=== PATIENT | male | born 1965 | race Caucasian/White ===

== ENCOUNTER 2017-11-04 20:10 | Inpatient (IN) | payer MEDICAID ==
[~2017-11-04] VITALS: Ht 182.9 cm; Wt 92.1 kg
--- NOTE | ~2017-11-04 | OP ---
PATIENT NAME: MARTIN BENAVIDES MEDICAL RECORD: [id number] :63 LOCATION:D. D.2116 ADMISSION DATE:11/05/17 SURGEON: MULUGETA KURTZ MD DATE OF OPERATION: 11/20/2017 DATE OF PROCEDURE: 11/20/2017 SURGEON: Mulugeta Kurtz MD ASSISTANT MEN'S SOCCER COACH: None. PROCEDURE PERFORMED: Left ultrasound-guided thoracentesis. DIAGNOSIS: Left pleural effusion following coronary bypass graft. ANESTHESIA: Local 10 cc of 1% Xylocaine. COMPLICATIONS: None. SPECIMENS: None. FINDINGS: 400 cc of fluid completely drained by ultrasound. DESCRIPTION OF PROCEDURE: With the patient seated upright and pulse oximetry connected, the patient's left posterior chest was imaged and a pleural effusion was identified. A site for entry was identified. The chest was prepped and draped. A 1% Xylocaine was used for local anesthetic. The effusion was localized utilizing a small needle. A 2 mm skin incision was made. The thoracentesis catheter was inserted carefully. Fluid was returned and a total of 400 cc of serosanguineous fluid were removed without complication. The catheter was removed. Pressure was held. Ultrasound confirmed complete drainage. The patient was stable and sent for chest x-ray. TRANSINT:[id number] Voice Confirmation ID: [id number] DOCUMENT ID: [id number] MULUGETA KURTZ MD at 1327 CC: JESSICA HERNANDEZ MD [id number] DICTATION DATE: 11/20/17 1147 PROGRAMS DIRECTOR: 11/20/17 1203 ADM IN [place] [address] [place] [address]
--- NOTE | ~2017-11-04 | CN ---
PATIENT NAME:MARTIN BENAVIDES MEDICAL RECORD: [id number] : 63 LOCATION:[facility] D.2116 ADMIT DATE: 11/05/17 ACCOUNT: [id number] CONSULTING PHYSICIAN: IRIS LACY MD REFERRING PHYSICIAN: VASILIY RICE DO DATE OF CONSULTATION: 11/05/2017 CONSULT REQUESTING PHYSICIAN: Dr. Vasiliy Rice REASON FOR CONSULTATION: Acute exacerbation of chronic obstructive pulmonary disease, CT. HISTORY OF PRESENT ILLNESS: Mr. Benavides is a 52-year-old gentleman who came into the hospital with the chest pain. Workup showed he has non-Q-wave CT. The patient was admitted to the hospital and also he is sick for the last couple of weeks. He is coughing, he is wheezing and shortness of breath. The cough is productive with yellow color sputum production. There are no fever and chills, no night sweats. REVIEW OF SYSTEMS: As in the history of present illness. PAST MEDICAL HISTORY: 1. Hypertension. 2. Tobacco dependence syndrome. PAST SURGICAL HISTORY: He has herniorrhaphy. ALLERGIES: There are no known drug allergies. MEDICATIONS: He is on lisinopril, carvedilol, and hydrochlorothiazide. PERSONAL AND SOCIAL HISTORY: The patient still current every day smoker for years. He is a nondrinker. FAMILY HISTORY: Noncontributory. PHYSICAL EXAMINATION: GENERAL: The patient is now lying comfortably in bed. He is not in acute distress. VITAL SIGNS: The blood pressure 171/121, pulse is 72, respiration is 17, temperature 97.5, and SPO2 is 97% on room air. HEENT: Conjunctivae pink, sclerae nonicteric. NECK: Supple, no JVD. CHEST: Excursion is minimal on both sides. There is wheeze on forceful expiration. HEART: Rhythm regular, normal sound, no murmur. ABDOMEN: Soft, bowel sounds present. No hepatosplenomegaly. RECTAL: Deferred. EXTREMITIES: No cyanosis, no clubbing, no pedal edema. SKIN: Warm, normal turgor. CENTRAL NERVOUS SYSTEM: The patient is awake and alert. There are no obvious cranial nerve abnormalities. The gait was not tested. CHEST RADIOGRAPH: There is hyperinflation. There is no acute infiltrate. CONSULT REPORT [id number] MARTIN BENAVIDES LABORATORY DATA: CBC: The WBC is 8.2, hemoglobin 14.4, hematocrit 44.1, and the platelet count 251. Chemistry: Sodium 141, potassium 3.8, BUN is 23, creatinine is 1.1. CK is 377. Troponin is 5.187, it maxed to 15.5. Albumin is 3. IMPRESSION: 1. Acute exacerbation of chronic obstructive pulmonary disease and acute bronchitis. 2. Non-Q-wave myocardial infarction. 3. Tobacco dependence syndrome. 4. Hypertension. RECOMMENDATIONS: 1. Start on albuterol-ipratropium nebulizer. 2. Brovana, budesonide nebulizer. 3. Methylprednisolone IV, doxycycline IV, Mucinex DM 2 tablets b.i.d. 4. The patient was counseled regarding smoking cessation. 5. The patient will need the PFT and ABG prior the CABG when his acute symptoms improve. Dr. Rice thank you for involving me in the care of Mr. Benavides. TRANSINT:[id number] Voice Confirmation ID: [id number] DOCUMENT ID: [id number] IRIS LACY MD at 1340 CC: VASILIY RICE DO [id number] DICTATION DATE: 11/05/171806 VOCATIONAL ADVISER: 11/05/171912 DIS IN 11/23/17 [facility] [address] [facility] [place] [address]
--- NOTE | ~2017-11-04 | HEMODYNAMI ---
PATIENT:MARTIN BENAVIDES MEDICAL RECORD: [id number] : 63 [address] CL[address]ICT# [id number] ADMISSION DATE: 11/04/17 Generatedon:11/05/20179:20 Patient name: MARTIN BENAVIDES Patient #: [id number] SSN: : 1965 Date of study: 11/05/2017 Page: Of Hemodynamic Procedure Report Patient Data Patient Demographics Procedure consent was obtained First Name: MARTIN Gender: Male Last Name: MAKAYLA : 1965 Middle Initial: E Age: 52 year(s) Patient #: [id number] Race: Unknown Additional ID: [id number] Contact details [address]: [address] [place] [address] State: [place] City: [place] Zip code: [address] Past Medical History Allergies: No known allergies Admission Admission Data Admission Date: 11/04/2017 Admission Time: 21:45 Room #: [facility] Lab Results Lab Result Date: 11/05/2017 Lab Result Time: 0:00 Biochemistry Name Units Result Min Max BUN mg/dl 23 --(----)-* 7 18 Creatinine mg/dl 1.1 --(--*-)-- 0.6 1.3 CBC Name Units Result Min Max Hemoglobin g/dl 14.4 --(*---)-- 13.5 17.5 Procedure Procedure Types Cath Procedure Diagnostic Procedure LHC LHC w/Coronaries Procedure Description Procedure Date Procedure Date: 11/05/2017 Procedure Start Time: 9:06 Procedure End Time: 9:19 Procedure Staff Name Function Adama Hedrick MD Performing Physician Tabitha De Anda RT Monitor Irasema Valencia RN Nurse Alisha Dow RT Scrub Procedure Data Cath Procedure Fluoroscopy Diagnostic fluoroscopy Total fluoroscopy Time: 1.8 time: 1.8 min min Diagnostic fluoroscopy Total fluoroscopy dose: 509 dose: 509 mGy mGy Contrast Material Contrast Material Type Amount (ml) Isovue 300 45 Entry Location Entry Primary Successful Side Size Upsize Upsize Entry Closure Cordova ccessful Closure Location (Fr) 1 (Fr) 2 (Fr) Remarks Device Remarks Radial Right 6 Fr Mechanical artery Short Compression Estimated blood loss: 5 ml Diagnostic catheters Device Type Used For End Catheter Placement DIAGNOSTIC Ravenden 110cm 5 Procedure Fr catheter ([id number]) Procedure Complications No complications Procedure Medications Medication Administration Route Dosage Oxygen NC 2 l/min Lidocaine 2% added to field 20 Heparin Flush Bag added to field 2 bags (1000units/500ml NS) 0.9% NaCl I.V. 100 ml/hr Fentanyl I.V. 50 mcg Versed I.V. 1 mg Radial Cocktail I.A. 1 syringe (Verapomil 2mg/Nitro 400mcg/Heparin 1500units) Lopressor I.V. 5 mg Hemodynamics Rest HGB: 14.4 (g/dl) Heart Rate: 70 (bpm) Pressure Samples Time Site Value (mmHg) Purpose Heart Use Rate(bpm) 9:08 LV 160/-22,77 EDP 132 9:09 LV 163/6,18 EDP 87 Gradients Valve Time Site Site Mean SEP/DFP Peak To Heart Use 1 2 (mmHg) (sec/min) Peak Rate (mmHg) (bpm) Aortic 9:09 LV AO 89 Snapshots Pre Cath Intra NCS Post Cath Vital Signs Time Heart Resp SPO2 etCO2 NIBP (mmHg) Rhythm Pain Sedation Rate (ipm) (%) (mmHg) Status Level (bpm) 8:52:12 62 20 99 0 183/105(142) NSR 0 (11) 10(A) , No pain 8:57:01 69 23 100 40.6 195/116(173) NSR 0 (11) 10(A) , No pain 9:01:51 69 20 100 39.9 183/123(151) NSR 0 (11) 10(A) , No pain 9:06:36 73 18 100 42.9 173/113(142) NSR 0 (11) 9(A) , No pain 9:11:12 80 18 96 39.1 143/93(117) NSR 0 (11) 9(A) , No pain 9:16:30 78 19 98 20.3 180/112(131) NSR 0 (11) 10(A) , No pain Medications Time Medication Route Dose Verified Delivered Reason Notes E ffectiveness by by 8:52:37 Oxygen NC 2 l/min Adama Buffie used for Ryley Valencia RN procedure MD 8:52:43 Lidocaine 2% added 20ml Adama Adama for local to vial Ryley Hedrick MD anesthetic field MD 8:52:49 Heparin Flush added 2 bags Adama Adama used for Bag to Ryley Hedrick MD procedure (1000units/500ml field SHORE NS) 8:52:59 0.9% NaCl I.V. 100 Adama Buffie Per ml/hr Ryley Valencia RN physician 9:03:02 Fentanyl I.V. 50 mcg Adama Buffie for sedation Ryley Valencia RN, MD 9:03:28 Versed I.V. 1 mg Adama Buffie for sedation Ryley Valencia RN, MD 9:07:47 Radial Cocktail I.A. 1 Adama Adama for (Verapomil syringe Ryley Hedrick MD vasodilation 2mg/Nitro MD 400mcg/Heparin 1500units) 9:18:11 Lopressor I.V. 5 mg Adama Buffie Per Ryley garza MD Procedure Log Time Note 8:39:34 Informed consent obtained and on chart 8:40:02 Irasema Valencia RN sent for patient. Start room use. 8:40:03 Time tracking: Regular hours 8:40:07 Plan of Care:Hemodynamics will remain stable., Cardiac rhythm will remain stable., Comfort level will be maintained., Respiratory function will remain adequate., Patient/ family verbilizes understanding of procedure., Procedure tolerated without complication., Recovers from procedure without complications.. 8:45:47 Patient received from Med II to CCL 1 Alert and oriented. Tansferred to table in Supine position. 8:45:49 Warm blankets applied, and brandyn hugger turned on for patient comfort. 8:45:49 Correct patient and procedure confirmed by team. 8:45:50 ECG and BP/O2 sat monitors applied to patient. 8:51:27 Vital chart was started 8:52:37 Oxygen 2 l/min NC was administered by Irasema Valencia RN; used for procedure; 8:52:43 Lidocaine 2% 20ml vial added to field was administered by Adama Hedrick MD; for local anesthetic; 8:52:49 Heparin Flush Bag (1000units/500ml NS) 2 bags added to field was administered by Adama Hedrick MD; used for procedure; 8:52:59 0.9% NaCl 100 ml/hr I.V. was administered by Irasema Valencia RN; Per physician; 8:58:42 Baseline sample Acquired. 8:58:46 Rhythm: sinus rhythm 8:58:47 Full Disclosure recording started 8:59:22 H&P Date Dictated: 11/05/2017 New H&P dictated by physician.. 8:59:23 Pre-procedure instructions explained to patient. 8:59:23 Pre-op teaching completed and patient verbalized understanding. 8:59:41 Family in patients room. 8:59:43 Patient NPO since Midnight. 8:59:49 Patient allergic to No known allergies 8:59:51 Is the patient allergic to Iodine/contrast media? No. 8:59:55 Is patient on blood thinner?Yes 8:59:57 ACC The patient was administered the following blood thiners within the last 24 hours: ACCPlavix 8:59:59 Patient diabetic? No. 9:00:02 Previous problem with sedation/anesthesia? No ? 9:00:02 Snore? Yes 9:00:03 Sleep apnea? No 9:00:04 Deviated septum? No 9:00:05 Opens mouth fully? Yes 9:00:06 Sticks out tongue? Yes 9:00:07 Airway obstruction? No ? 9:00:13 Dentures? Yes IN TIGHT 9:00:17 Pre procedure: right dorsailis pedis pulse 2+ Normal; easily identifiable; not easily obliterated 9:00:19 Modified Leno's test Ulnar < 7 seconds 9:00:26 Patient pain scale 0/10 ?. 9:00:33 IV patent on arrival in left antecubital with 0.9% NaCl at O. 9:00:59 Lab Result : Creatinine 1.1 mg/dl 9:00:59 Lab Result : BUN 23 mg/dl 9:00:59 Lab Result : Hemoglobin 14.4 g/dl 9:01:02 Lab results completed and on chart. 9:01:05 Right Radial & Right Groin area was prepped with chlora-prep and draped in sterile fashion 9:01:06 Alarms reviewed by Maria Elena Riley 9:01:12 Sharps counted by scrub and verified by Halina 9:01:13 --------ALL STOP TIME OUT------ 9:01:14 Final Timeout: patient, procedure, and site verified with staff and physician. All members of the team are in agreement. 9:01:16 Right Radial & Right Groin site verified by team. 9:01:20 Physical assessment completed. ASA score P 2 - A patient with mild systemic disease as per Adama Hedrick MD. 9:01:23 Sedation plan: IV Moderate Sedation Medication:Versed, Fentanyl 9:01:30 Use device set Radial Dx or PCI 9:01:31 ACIST Syringe (83823) opened to sterile field. 9:01:32 ACIST Hand Control (33403) opened to sterile field. 9:01:33 ACIST Manifold (45666) opened to sterile field. 9:01:33 Tegaderm 4 x 4 (1626W) opened to sterile field. 9:01:36 Bag Decanter (2002S) opened to sterile field. 9:01:37 Medline Cath Pack ([id number]) opened to sterile field. 9:01:38 SHEATH 6FR Slender ([id number]) opened to sterile field. 9:01:40 DIAGNOSTIC WIRE .035 260cm J wire (511894) opened to sterile field. 9:01:40 MBrace Wrist Support ([id number]) opened to sterile field. 9:03:02 Fentanyl 50 mcg I.V. was administered by Irasema Valencia RN; for sedation; 9:03:28 Versed 1 mg I.V. was administered by Irasema Valencia RN; for sedation; 9:06:07 Procedure started. 9:06:12 Local anesthetic to right radial artery with Lidocaine 2% by Adama Hedrick MD.INITIAL ACCESS ONLY 9:06:22 A 6 Fr Short sheath was inserted into the Right Radial artery 9:07:06 Zero performed for pressure channel P1 9:07:46 A DIAGNOSTIC Ravenden 110cm 5 Fr catheter (417009) was advanced over the wire and used for Procedure. 9:07:47 Radial Cocktail (Verapomil 2mg/Nitro 400mcg/Heparin 1500units) 1 syringe I.A. was administered by Adama Hedrick MD; for vasodilation; 9:07:59 LV gram done using WHITMAN 9:08:03 Injector settings: Ml/sec: 12, Volume: 8, 9:08:41 LV hemodynamics recorded. 9:09:35 EF : 70 % 9:10:51 LCA angiography performed. 9:11:11 RCA angiography performed. 9:12:35 Catheter removed. 9:13:19 WILL TALK WITH PATIENT FOR BYPASS 9:13:38 TR BAND Standard ([id number]) opened to sterile field. 9:14:13 Sheath removed intact; hemostasis achieved with Mechanical Compression to the Right Radial artery. 9:14:16 Procedure ended.(Physican Out) 9:14:20 Fluoroscopy time 01.80 minutes. 9:14:25 Fluoroscopy dose: 509 mGy 9:14:25 Flurop Dose total: 509 9:14:29 Contrast amount:Isovue 300 45ml. 9:14:31 Sharps counted by scrub and verified by R.N. 9:14:32 TR band inflated with 13cc of air. 9:14:33 Insertion/operative site no bleeding no hematoma. 9:14:36 Post procedure: right dorsailis pedis pulse 2+ Normal; easily identifiable; not easily obliterated. 9:14:39 Post-procedure physical assessment completed. ASA score P 2 - A patient with mild systemic disease as per Adama Hedrick MD. 9:14:42 Post procedure rhythm: unchanged. 9:14:45 Estimated blood loss: 5 ml 9:14:46 Post procedure instruction explained to patient.Patient verbalizes understanding. 9:14:48 Patient needs reinforcement of post procedure teaching. 9:18:11 Lopressor 5 mg I.V. was administered by Irasema Valencia RN; Per physician; 9:19:11 Procedure and supply charges have been captured, reviewed, submitted and are correct. 9:19:13 Procedure Complication : No complications 9:19:15 Vital chart was stopped 9:19:16 See physician's report for complete and final results. 9:19:18 Report given to PCU. 9:19:21 Patient transfered to PCU with Bed. 9:19:33 Procedure ended. 9:19:33 Full Disclosure recording stopped 9:19:40 End room use (Document Last) Device Usage Item Name Manufacture Quantity Catalog Hospital Part Current Minima l Lot# / Number Charge Number Stock Stock Serial# Code ACIST Acist 1 97597 659281 513396 [id number] 20 Syringe RewardsForce (81445) Foodini Inc ACIST Hand Acist 1 76636 284946 293578 304617 5 Control Medical (70132) Systems Inc ACIST Acist 1 48303 681847 711009 089160 5 Manifold Medical (06156) Systems Inc Tegaderm 4 x 3M 1 1626W 512825 499674 782378 5 4 (1626W) Bag Decanter Microtek 1 2002S 145290 99075 137266 5 (2001S) Medical Inc. Medline Cath Cardinal 1 [id number] 108278 12883 290010 5 [facility] ([id number]) SHEATH 6FR Terumo 1 [id number] 428708 051421 898688 40 Slender ([id number]) DIAGNOSTIC St Max 1 510597 150499 154482 500984 30 WIRE .035 260cm J wire (063247) MBrace Wrist Advanced 1 140-0250-00 980771 83579 611147 5 Support Vascular ([id number]) Dynamics DIAGNOSTIC Terumo 1 40-0833 113965 420510 120756 5 Ravenden 110cm 5 Fr catheter (395599) TR BAND Terumo 1 [id number] 314727 506752 749577 40 Standard ([id number]) Signature Audit [place] Stage Time Signature Unsigned Intra-Procedure 11/05/2017 Tabitha De Anda 9:20:31 AM RT(R) Signatures Monitor : Tabitha De Anda Signature : RT Date : Time : [place] [id number] [facility] [place] [address]
--- NOTE | ~2017-11-04 | TEE ---
PATIENT:MARTIN BENAVIDES MEDICAL RECORD: [id number] LOCATION:[place] [address] AGE OF PATIENT: 52 ADMISSION DATE: 11/05/17 SEX: M REFERRING PHYSICIAN: INTERPRETING PHYSICIAN: ЕКАТЕРИНА CRAWFORD MD TRANSESOPHAGEAL ECHOCARDIOGRAM RENETTA CHARGE Y INDICATIONS: CABG PREMEDICATIONS: PATIENT'S RESPONSE PROCEDURE DOPPLER MEASUREMENTS: LVIT LA PA RA LVOT RVOT Asc. Ao AV Gradient Peak AV Mean AV Area MV Gradient Peak MV Mean MV Area INTERPRETATION: LVd: 3.9 cm LVs: 3.0 cm Doppler: 2-D: COLOR FLOW DOPPLER NORMAL SALINE STUDY: MISCELLANOUS: DIAGNOSIS: PLAN: Nurse Informaticist:4 Dr. Crawford Local Tanker Truck Driver: 1 RANDOLPH JACKSON COMMENTS: DATE OF SERVICE: 11/13/2017 PROCEDURE: Transesophageal intraoperative echocardiography. FINDINGS: 1. The left ventricle is somewhat collapsed at initial transesophageal echocardiogram showing preserved LV systolic function. No obvious regional wall motion abnormalities. 2. The aortic valve appears to be structurally normal. TRANSESOPHAGEAL ECHOCARDIOGRAM REPORT [id number] MARTIN BENAVIDES 3. The mitral valve appears to be normal structurally with mild mitral regurgitation. 4. The pulmonic valve appears to be normal. Post-bypass imaging showed the ejection fraction near normal, although the left ventricle itself seems to be collapsed and the filling was suboptimal and the ejection fraction is 45% to 50%. TRANSINT:[id number] Voice Confirmation ID: [id number] DOCUMENT ID: [id number] at 1214 CC: [id number] DICTATION DATE: 11/13/17 1218 [place] OPERATOR: 11/13/17 1232 ADM IN [place] [address] [place] [address]
--- NOTE | ~2017-11-04 | OP ---
PATIENT NAME: MARTIN BENAVIDES MEDICAL RECORD: [id number] :63 LOCATION:D.CVI D.CV06 ADMISSION DATE:11/05/17 SURGEON: JACKY KURTZ MD DATE OF OPERATION: 11/13/2017 SURGEON: Jacky Kurtz MD STRESS ENGINEER: OPAL Kong OPERATIONS PERFORMED: 1. Coronary artery bypass graft times 3 (left internal mammary artery to LAD, radial artery from aorta to obtuse marginal, and reverse saphenous vein graft from aorta to posterior descending artery). 2. Open harvest, right radial artery. PREOPERATIVE DIAGNOSES: Coronary disease with myocardial infarction, severe COPD, bronchitis exacerbation. POSTOPERATIVE DIAGNOSES: Coronary disease with myocardial infarction, severe COPD, bronchitis exacerbation. ANESTHESIA: General endotracheal anesthesia. ESTIMATED BLOOD LOSS: Total cardiopulmonary bypass of 1200 cc. Cell Saver will be transfused. No bank blood transfusion. One platelet transfused. COMPLICATIONS: Localized aortic dissection along the left side of the ascending aorta, repaired primarily. SPECIMENS: None. CONDITION: Stable. DISPOSITION: CV ICU. OPERATIVE FINDINGS: 1. Transesophageal echocardiography confirmed severe left ventricular hypertrophy, normal LV function, and no valvular insufficiency or stenosis. 2. Good quality radial artery harvested. The calcium channel yanira was omitted due to bradycardia. 3. Good quality saphenous vein from open bridging harvest, right lower extremity. 4. Good quality internal mammary artery. 5. Severe left ventricular hypertrophy. 6. The heart would not arrest despite antegrade and retrograde cardioplegia. A localized aortic dissection at the clamp site was noted. The patient had 9-minute circulatory arrest to allow recannulation and replacement of the clamp to a new site where the patient was then given additional cardioplegia antegrade and retrograde. 7. The LAD was a severely diseased 2.0-mm vessel. 8. Obtuse marginal 2.0-mm vessel. 9. Posterior descending artery 1.75-mm severely diseased vessel. 10. Separation from cardiopulmonary bypass with bradycardia, requiring AV pacing, but eventually resumed to sinus rhythm with low-dose dopamine and Jayson-Synephrine. OPERATIVE REPORT [id number] MARTIN BENAVIDES OPERATIVE INDICATION: Myocardial infarction, severe 3-vessel coronary disease. OPERATIVE SUMMARY IN DETAIL: The patient was brought to the operating suite. General anesthesia was obtained. Difficulty in placing the [place]-Jayson catheter was noted, but it was later placed after the sternotomy. With the patient prepped including the right arm, incision was made along the forearm. Radial artery was harvested in its entire length and side branches were clipped proximally and distally. The vessel was ligated and oversewn with a Prolene suture. The vessel was perfused with blood, papaverine, and heparin solution and maintained until time of implantation. The arm was irrigated and closed in 2 layers, wrapped, and placed at the patient's side. The greater saphenous vein was harvested from right lower extremity utilizing bridging incisions. Side branches were clipped. Vessel was ligated proximally and distally and removed. Leg was then closed in 2 layers at the conclusion of the case. Median sternotomy incision was made. Subcutaneous tissue was divided with electrocautery. Sternum was divided with a saw. Left hemisternum was elevated. Left pleural cavity was entered. Left internal mammary artery and veins are taken down as a pedicle graft. Sternal retractor was placed. Pericardium was opened. Heparin was given. Aorta was cannulated without difficulty through 2 concentric pursestrings. The right atrial appendage was cannulated with a dual-stage cannula. The retrograde cardioplegic cannula was inserted. Internal mammary was clipped distally and made ready for anastomosis. Activated clotting time was appropriately elevated. The patient was placed on cardiopulmonary bypass. Sites for distal anastomoses were selected. The patient was cooled. Cross-clamp was placed. Cardioplegia was given antegrade and retrograde, but the patient did not arrest easily. The inspection of the clamp site revealed a localized dissection. The patient was further cooled. Pump flow was turned to zero. The patient was decannulated. The patient was in steep Trendelenburg position. The cannula was repositioned slightly superiorly and localized dissection repaired. The patient was recharged with normal flows as there had been previous to that and no evidence of further dissection. Cross-clamp was then again placed and we were able to arrest the heart with antegrade and retrograde cardioplegia. Proximal and distal anastomoses were performed in standard technique. Vein graft was deaired after restoring flow. The patient was fully rewarmed, weaned off cardiopulmonary bypass, and was stable. The patient was decannulated. Cannula sites were oversewn including left ventricular vein which had been placed through the right superior pulmonary vein. Protamine was given. Hemostasis was ensured and the grafts laid appropriately. Drains were placed in the mediastinum and left pleural cavity. Atrial and ventricular pacing wires were placed prior to separation from cardiopulmonary bypass. At this point, the patient was stable and the pericardial fat was loosely reapproximated. Left chest was evacuated and irrigated. The sternum was closed with wires. The patient was stable and chest was closed. Fascia was closed, subcutaneous tissue was closed, and skin was closed. Dressing was placed. The patient was taken to the ICU in stable condition. TRANSINT:[id number] Voice Confirmation ID: [id number] DOCUMENT ID: [id number] OPERATIVE REPORT [id number] MARTIN BENAVIDES, JACKY Nobles MD at 1847 CC: MK RICE DO [id number] DICTATION DATE: 11/13/17 1621 COUNTY NURSE: 11/13/17 1919 ADM IN [facility] [address] [place] [address]
[2017-11-04 20:34] LABS: BASOPHILS 0.2 % (0-2); EOSINOPHILS 0.8 % (0-7); HEMATOCRIT 46.9 % (42.0-54.0); HEMOGLOBIN 15.6 g/dL (13.5-17.5); IMMATURE GRANULOCYTES 0.2 % (0-5); LYMPHOCYTES 13.3 % (15-50); MCH 30.2 pg (26.0-34.0); MCHC 33.3 g/dL (31.0-37.0); MCV 90.9 fL (80.0-100.0); MEAN PLATELET VOLUME 9.4 fL (7.4-10.4); MONOCYTES 4.8 % (2-11); NEUTROPHILS 80.7 % (40-80); PLATELET COUNT 252 10x3/uL (130-400); RBC 5.16 10x6/uL (4.20-6.10); RDW 13.2 % (11.5-14.5); WBC 9.9 10x3/uL (4.8-10.8)
[2017-11-04 20:48] LABS: INR 1.06 (0.85-1.17); PROTIME 13.4 SECONDS (11.6-15.0)
[2017-11-04 20:49] LABS: D-DIMER-QUANTITATIVE < 0.27 ug/mLFEU (0.20-0.54)
[2017-11-04 20:53] LABS: ALBUMIN 3.4 g/dL (3.4-5.0); ALKALINE PHOSPHATASE 88 U/L (46-116); ALT (SGPT) 32 U/L (10-68); BILIRUBIN - TOTAL 0.26 mg/dL (0.2-1.3); CALC OSMOLALITY 286 mosm/kg (275-300); CALCIUM 8.7 mg/dL (8.5-10.1); CARBON DIOXIDE 29.6 mmol/L (21.0-32.0); CHLORIDE - SERUM 102 mmol/L (98-107); CREATININE - SERUM 1.2 mg/dL (0.6-1.3); GLUCOSE 130 mg/dL (74-106); PROTEIN - SERUM 6.7 g/dL (6.4-8.2); SODIUM 141 mmol/L (136-145); UREA NITROGEN 25 mg/dL (7-18); eGFR NON AFRICAN AMERICAN 67 mL/min (90-120)
[2017-11-04 21:03] LABS: CHOL - HDL RATIO 7.9 ratio (2.3-4.9); CHOLESTEROL, TOTAL 182 mg/dL (0-200); CREATINE KINASE 69 UL (21-232); HDL CHOLESTEROL 23 mg/dL (32-96); LDL CHOLESTEROL 99 mg/dL (0-100); LDL-HDL RATIO 4.3 ratio (1.5-3.5); PRO BNP 1125 pg/mL (0-125); TRIGLYCERIDE 303 mg/dL (30-200); TROPONIN-I 0.049 ng/mL (0.000-0.060)
[2017-11-04] MEDS ORDERED: PRINIVIL20 MG PO (22:46)
[2017-11-04] MEDS ORDERED: COREG6.25 MG PO (22:47)
[2017-11-04] MEDS ORDERED: HYDROCHLOROTH12.5 M1 PO (22:47)
[2017-11-05] VITALS (7 sets, daily range): BP systolic 142–204; BP diastolic 90–121; BMI 32.6
[2017-11-05 05:34] LABS: BASOPHILS 0.2 % (0-2); EOSINOPHILS 0.7 % (0-7); HEMATOCRIT 44.1 % (42.0-54.0); HEMOGLOBIN 14.4 g/dL (13.5-17.5); IMMATURE GRANULOCYTES 0.2 % (0-5); LYMPHOCYTES 22.1 % (15-50); MCH 30.1 pg (26.0-34.0); MCHC 32.7 g/dL (31.0-37.0); MCV 92.1 fL (80.0-100.0); MEAN PLATELET VOLUME 9.7 fL (7.4-10.4); MONOCYTES 9.3 % (2-11); NEUTROPHILS 67.5 % (40-80); PLATELET COUNT 252 10x3/uL (130-400); RBC 4.79 10x6/uL (4.20-6.10); RDW 13.1 % (11.5-14.5); WBC 8.2 10x3/uL (4.8-10.8)
[2017-11-05 06:12] LABS: ALKALINE PHOSPHATASE 75 U/L (46-116); ALT (SGPT) 32 U/L (10-68); BILIRUBIN - TOTAL 0.42 mg/dL (0.2-1.3); CALC OSMOLALITY 284 mosm/kg (275-300); CALCIUM 8.6 mg/dL (8.5-10.1); CARBON DIOXIDE 29.8 mmol/L (21.0-32.0); CHLORIDE - SERUM 106 mmol/L (98-107); CKMB 51.9 U/L (0.0-3.6); CREATINE KINASE 377 UL (21-232); CREATININE - SERUM 1.1 mg/dL (0.6-1.3); GLUCOSE 90 mg/dL (74-106); POTASSIUM - SERUM 3.8 mmol/L (3.5-5.1); PROTEIN - SERUM 6.5 g/dL (6.4-8.2); SODIUM 141 mmol/L (136-145); UREA NITROGEN 23 mg/dL (7-18); eGFR NON AFRICAN AMERICAN 74 mL/min (90-120)
[2017-11-05 06:13] LABS: TROPONIN-I 5.187 ng/mL (0.000-0.060)
[2017-11-05 10:35] LABS: CKMB 41.5 U/L (0.0-3.6); CREATINE KINASE 343 UL (21-232)
[2017-11-05 10:37] LABS: TROPONIN-I 15.515 ng/mL (0.000-0.060)
[2017-11-05 13:29] LABS: PLT FUNCT.(P2Y12) PLAVIX 94 PRU (194-418)
[2017-11-06] VITALS: BP 146/80
[2017-11-06 04:00] VITALS: BP 100/60
[2017-11-06 05:44] LABS: PLT FUNCT.(P2Y12) PLAVIX 50 PRU (194-418)
[2017-11-06 07:48] VITALS: BP 178/102
[2017-11-06 10:38] VITALS: BP 168/99
[2017-11-06 14:56] VITALS: BP 164/86
[2017-11-07 04:00] VITALS: BP 168/100
[2017-11-07 05:25] LABS: PLT FUNCT.(P2Y12) PLAVIX 105 PRU (194-418)
[2017-11-07 08:06] VITALS: BP 168/96
[2017-11-07 11:14] VITALS: BP 152/91
[2017-11-07 14:56] VITALS: BP 156/89
[2017-11-07 15:25] LABS: HEPATITIS C ANTIBODY <0.1 (0.0-0.9)
[2017-11-07 20:00] VITALS: BP 177/74
[2017-11-08] VITALS: BP 166/70
[2017-11-08 04:00] VITALS: BP 151/98
[2017-11-08 04:36] LABS: BASOPHILS 0 % (0-2); EOSINOPHILS 0 % (0-7); HEMATOCRIT 42.6 % (42.0-54.0); HEMOGLOBIN 14.2 g/dL (13.5-17.5); IMMATURE GRANULOCYTES 0.3 % (0-5); MCH 30.7 pg (26.0-34.0); MCHC 33.3 g/dL (31.0-37.0); MEAN PLATELET VOLUME 9.6 fL (7.4-10.4); MONOCYTES 4.5 % (2-11); NEUTROPHILS 82.2 % (40-80); PLATELET COUNT 249 10x3/uL (130-400); RBC 4.63 10x6/uL (4.20-6.10); RDW 13.3 % (11.5-14.5)
[2017-11-08 04:53] LABS: PLT FUNCT.(P2Y12) PLAVIX 139 PRU (194-418)
[2017-11-08 04:58] LABS: ALBUMIN 2.9 g/dL (3.4-5.0); ANION GAP 12.2 mmol/L (8-16); BILIRUBIN - TOTAL 0.4 mg/dL (0.2-1.3); CALCIUM 8.1 mg/dL (8.5-10.1); CARBON DIOXIDE 25.1 mmol/L (21.0-32.0); CREATININE - SERUM 1.2 mg/dL (0.6-1.3); POTASSIUM - SERUM 4.3 mmol/L (3.5-5.1); PROTEIN - SERUM 6.2 g/dL (6.4-8.2)
[2017-11-08 08:04] VITALS: BP 167/91
[2017-11-08 11:04] VITALS: BP 162/85
[2017-11-08 14:39] VITALS: BP 151/75
[2017-11-08 20:39] VITALS: BP 180/94
[2017-11-09] VITALS: BP 169/94
[2017-11-09 04:53] VITALS: BP 165/93
[2017-11-09 05:18] LABS: PLT FUNCT.(P2Y12) PLAVIX 137 PRU (194-418)
[2017-11-09 08:09] VITALS: BP 181/100
[2017-11-09 11:19] VITALS: BP 155/95
[2017-11-09 13:53] VITALS: BMI 28.2
[2017-11-09 15:22] VITALS: BP 166/87
[2017-11-09 20:00] VITALS: BP 178/99
[2017-11-10] VITALS: BP 154/107
[2017-11-10 04:00] VITALS: BP 167/96
[2017-11-10 08:53] VITALS: BP 190/104
[2017-11-10 09:17] LABS: BASOPHILS 0.1 % (0-2); EOSINOPHILS 0 % (0-7); HEMATOCRIT 49.1 % (42.0-54.0); HEMOGLOBIN 16.3 g/dL (13.5-17.5); LYMPHOCYTES 11.4 % (15-50); MCH 30.4 pg (26.0-34.0); MCHC 33.2 g/dL (31.0-37.0); MCV 91.6 fL (80.0-100.0); MEAN PLATELET VOLUME 9.7 fL (7.4-10.4); MONOCYTES 5.6 % (2-11); NEUTROPHILS 81.9 % (40-80); PLATELET COUNT 244 10x3/uL (130-400); RBC 5.36 10x6/uL (4.20-6.10); RDW 13.5 % (11.5-14.5)
[2017-11-10 09:22] LABS: ALBUMIN 3.2 g/dL (3.4-5.0); ALKALINE PHOSPHATASE 72 U/L (46-116); ALT (SGPT) 102 U/L (10-68); CALC OSMOLALITY 282 mosm/kg (275-300); CALCIUM 8.2 mg/dL (8.5-10.1); CARBON DIOXIDE 22.9 mmol/L (21.0-32.0); CHLORIDE - SERUM 105 mmol/L (98-107); GLUCOSE 121 mg/dL (74-106); POTASSIUM - SERUM 3.9 mmol/L (3.5-5.1); PROTEIN - SERUM 6.6 g/dL (6.4-8.2); SODIUM 138 mmol/L (136-145); UREA NITROGEN 30 mg/dL (7-18); eGFR NON AFRICAN AMERICAN 83 mL/min (90-120)
[2017-11-10 13:36] VITALS: BP 154/88
[2017-11-10 16:01] VITALS: BP 172/99
[2017-11-10 19:00] VITALS: BP 206/111
[2017-11-11] VITALS: BP 157/91
[2017-11-11 03:51] VITALS: Ht 182.9 cm; Wt 92.1 kg
[2017-11-11 04:00] VITALS: BP 194/94
[2017-11-11 06:02] LABS: PLT FUNCT.(P2Y12) PLAVIX 138 PRU (194-418)
[2017-11-11 06:07] LABS: BASOPHILS 0 % (0-2); EOSINOPHILS 0.1 % (0-7); HEMATOCRIT 48.8 % (42.0-54.0); HEMOGLOBIN 15.8 g/dL (13.5-17.5); IMMATURE GRANULOCYTES 1.2 % (0-5); LYMPHOCYTES 21.4 % (15-50); MCH 30.2 pg (26.0-34.0); MCHC 32.4 g/dL (31.0-37.0); MCV 93.1 fL (80.0-100.0); MEAN PLATELET VOLUME 9.8 fL (7.4-10.4); MONOCYTES 7.2 % (2-11); NEUTROPHILS 70.1 % (40-80); PLATELET COUNT 254 10x3/uL (130-400); RBC 5.24 10x6/uL (4.20-6.10); RDW 13.5 % (11.5-14.5); WBC 11.3 10x3/uL (4.8-10.8)
[2017-11-11 06:16] LABS: ALBUMIN 2.9 g/dL (3.4-5.0); ANION GAP 13.7 mmol/L (8-16); BILIRUBIN - TOTAL 0.4 mg/dL (0.2-1.3); CALCIUM 8.1 mg/dL (8.5-10.1); CARBON DIOXIDE 24.5 mmol/L (21.0-32.0); CREATININE - SERUM 1.1 mg/dL (0.6-1.3); POTASSIUM - SERUM 4.2 mmol/L (3.5-5.1)
[2017-11-11 07:46] VITALS: BP 171/107
[2017-11-11 11:39] VITALS: BP 162/100
[2017-11-11 11:53] LABS: HEMATOCRIT 50.2 % (42.0-54.0); HEMOGLOBIN 16.5 g/dL (13.5-17.5); MCH 30.6 pg (26.0-34.0); MCHC 32.9 g/dL (31.0-37.0); MEAN PLATELET VOLUME 9.5 fL (7.4-10.4); RBC 5.4 10x6/uL (4.20-6.10); RDW 13.6 % (11.5-14.5)
[2017-11-11 12:02] LABS: APTT 27.6 SECONDS (22.8-39.4); INR 1.09 (0.85-1.17); PROTIME 13.7 SECONDS (11.6-15.0)
[2017-11-11 12:03] LABS: WBC 15.8 10x3/uL (4.8-10.8)
[2017-11-11 15:34] VITALS: BP 115/71
[2017-11-11 21:40] VITALS: BP 140/80
[2017-11-12 00:37] LABS: HEMATOCRIT 46.5 % (42.0-54.0); HEMOGLOBIN 15.1 g/dL (13.5-17.5); MCH 30.1 pg (26.0-34.0); MCHC 32.5 g/dL (31.0-37.0); MCV 92.8 fL (80.0-100.0); MEAN PLATELET VOLUME 9.6 fL (7.4-10.4); RBC 5.01 10x6/uL (4.20-6.10); RDW 13.6 % (11.5-14.5)
[2017-11-12 00:39] LABS: WBC 11.5 10x3/uL (4.8-10.8)
[2017-11-12 00:47] VITALS: BP 157/93
[2017-11-12 05:00] LABS: BASOPHILS 0.1 % (0-2); EOSINOPHILS 0.2 % (0-7); HEMATOCRIT 46.9 % (42.0-54.0); HEMOGLOBIN 15.1 g/dL (13.5-17.5); IMMATURE GRANULOCYTES 0.9 % (0-5); LYMPHOCYTES 16.5 % (15-50); MCH 29.8 pg (26.0-34.0); MCHC 32.2 g/dL (31.0-37.0); MCV 92.5 fL (80.0-100.0); MEAN PLATELET VOLUME 9.9 fL (7.4-10.4); MONOCYTES 7.7 % (2-11); NEUTROPHILS 74.6 % (40-80); PLATELET COUNT 247 10x3/uL (130-400); RBC 5.07 10x6/uL (4.20-6.10); RDW 13.5 % (11.5-14.5); WBC 14.1 10x3/uL (4.8-10.8)
[2017-11-12 05:51] LABS: ALBUMIN 2.8 g/dL (3.4-5.0); ANION GAP 14.8 mmol/L (8-16); BILIRUBIN - TOTAL 0.6 mg/dL (0.2-1.3); CALCIUM 7.8 mg/dL (8.5-10.1); CARBON DIOXIDE 23.4 mmol/L (21.0-32.0); CREATININE - SERUM 1.1 mg/dL (0.6-1.3); PHOSPHOROUS 3.8 mg/dL (2.5-4.9); POTASSIUM - SERUM 4.2 mmol/L (3.5-5.1); PROTEIN - SERUM 5.8 g/dL (6.4-8.2); T4 THYROXIN - FREE 1.38 ng/dL (0.76-1.46); THYROID STIMULATING HORMONE 0.75 uIU/mL (0.36-3.74); URIC ACID 6.6 mg/dL (2.6-7.2)
[2017-11-12 06:44] VITALS: BP 150/77
[2017-11-12 08:11] VITALS: BP 168/102
[2017-11-12 09:24] LABS: APPEARANCE CLEAR (CLEAR); BILIRUBIN NEGATIVE (NEGATIVE); COLOR YELLOW (YELLOW); GLUCOSE NEGATIVE (NEGATIVE); KETONE NEGATIVE (NEGATIVE); NITRITE NEGATIVE (NEGATIVE); PROTEIN NEGATIVE (NEGATIVE); UROBILINOGEN NORMAL (NORMAL)
[2017-11-12 11:26] VITALS: BP 160/97
[2017-11-12 16:24] LABS: INR 1.1 (0.85-1.17); PROTIME 13.8 SECONDS (11.6-15.0)
[2017-11-12 16:25] LABS: APTT 66.6 SECONDS (22.8-39.4)
[2017-11-12 16:53] VITALS: BP 153/86
[2017-11-12 20:00] VITALS: BP 157/92
[2017-11-13] VITALS (32 sets, daily range): BP systolic 90–136; BP diastolic 50–87
[2017-11-13 05:56] LABS: BASOPHILS 0.1 % (0-2); EOSINOPHILS 0.2 % (0-7); HEMATOCRIT 48.7 % (42.0-54.0); HEMOGLOBIN 16.3 g/dL (13.5-17.5); IMMATURE GRANULOCYTES 0.7 % (0-5); MCH 30.5 pg (26.0-34.0); MCHC 33.5 g/dL (31.0-37.0); MCV 91.2 fL (80.0-100.0); MEAN PLATELET VOLUME 10.2 fL (7.4-10.4); MONOCYTES 7.8 % (2-11); NEUTROPHILS 79.2 % (40-80); PLATELET COUNT 278 10x3/uL (130-400); RBC 5.34 10x6/uL (4.20-6.10); RDW 13.3 % (11.5-14.5)
[2017-11-13 06:09] LABS: ANION GAP 12.4 mmol/L (8-16); CALCIUM 8.8 mg/dL (8.5-10.1); CARBON DIOXIDE 25.5 mmol/L (21.0-32.0); CREATININE - SERUM 1.2 mg/dL (0.6-1.3); POTASSIUM - SERUM 3.9 mmol/L (3.5-5.1)
[2017-11-13 07:51] LABS: PLT FUNCT.(P2Y12) PLAVIX 192 PRU (194-418)
[2017-11-13 15:38] LABS: HEMATOCRIT 33.8 % (42.0-54.0); MCH 29.7 pg (26.0-34.0); MCHC 32.5 g/dL (31.0-37.0); MCV 91.4 fL (80.0-100.0); MEAN PLATELET VOLUME 9.8 fL (7.4-10.4); RBC 3.7 10x6/uL (4.20-6.10); RDW 13.2 % (11.5-14.5); WBC 25.3 10x3/uL (4.8-10.8)
[2017-11-13 15:45] LABS: CARBON DIOXIDE 22.2 mmol/L (21.0-32.0); CREATININE - SERUM 1.1 mg/dL (0.6-1.3)
[2017-11-13 15:50] LABS: APTT 38.1 SECONDS (22.8-39.4); INR 1.83 (0.85-1.17); PROTIME 20.6 SECONDS (11.6-15.0)
[2017-11-13 16:02] LABS: ANION GAP 15.1 mmol/L (8-16); POTASSIUM - SERUM 5.3 mmol/L (3.5-5.1)
[2017-11-13 16:03] LABS: CALCIUM 6.8 mg/dL (8.5-10.1)
[2017-11-14] VITALS (90 sets, daily range): BP systolic 86–128; BP diastolic 51–83
[2017-11-14 01:10] LABS: WBC 24.8 10x3/uL (4.8-10.8)
[2017-11-14 01:11] LABS: HEMOGLOBIN 14.3 g/dL (13.5-17.5); MCHC 32.5 g/dL (31.0-37.0); MCV 92.4 fL (80.0-100.0); MEAN PLATELET VOLUME 10.2 fL (7.4-10.4); RBC 4.76 10x6/uL (4.20-6.10); RDW 13.7 % (11.5-14.5)
[2017-11-14 06:40] LABS: ALBUMIN 2.4 g/dL (3.4-5.0); CALCIUM 8.2 mg/dL (8.5-10.1); CARBON DIOXIDE 23.2 mmol/L (21.0-32.0); CREATININE - SERUM 1.6 mg/dL (0.6-1.3); POTASSIUM - SERUM 5.2 mmol/L (3.5-5.1); PROTEIN - SERUM 5.1 g/dL (6.4-8.2)
[2017-11-14 06:44] LABS: HEMATOCRIT 42.9 % (42.0-54.0); HEMOGLOBIN 13.9 g/dL (13.5-17.5); MCH 30.2 pg (26.0-34.0); MCHC 32.4 g/dL (31.0-37.0); MCV 93.1 fL (80.0-100.0); RBC 4.61 10x6/uL (4.20-6.10); WBC 23.9 10x3/uL (4.8-10.8)
[2017-11-15] VITALS (45 sets, daily range): BP systolic 81–145; BP diastolic 38–80
[2017-11-15 06:20] LABS: HEMATOCRIT 34.1 % (42.0-54.0); HEMOGLOBIN 10.8 g/dL (13.5-17.5); MCH 29.9 pg (26.0-34.0); MCHC 31.7 g/dL (31.0-37.0); MCV 94.5 fL (80.0-100.0); MEAN PLATELET VOLUME 10.2 fL (7.4-10.4); RBC 3.61 10x6/uL (4.20-6.10); RDW 13.7 % (11.5-14.5); WBC 21.6 10x3/uL (4.8-10.8)
[2017-11-15 06:34] LABS: ALBUMIN 2.3 g/dL (3.4-5.0); ANION GAP 12.1 mmol/L (8-16); BILIRUBIN - TOTAL 0.84 mg/dL (0.2-1.3); CALCIUM 8.4 mg/dL (8.5-10.1); CARBON DIOXIDE 26.8 mmol/L (21.0-32.0); CREATININE - SERUM 1.7 mg/dL (0.6-1.3); POTASSIUM - SERUM 4.9 mmol/L (3.5-5.1); PROTEIN - SERUM 5.3 g/dL (6.4-8.2)
[2017-11-16] VITALS (19 sets, daily range): BP systolic 106–156; BP diastolic 59–91
[2017-11-16 05:54] LABS: HEMATOCRIT 30.6 % (42.0-54.0); HEMOGLOBIN 9.7 g/dL (13.5-17.5); MCH 29.5 pg (26.0-34.0); MCHC 31.7 g/dL (31.0-37.0); MEAN PLATELET VOLUME 10.4 fL (7.4-10.4); RBC 3.29 10x6/uL (4.20-6.10); RDW 13.7 % (11.5-14.5)
[2017-11-16 06:16] LABS: WBC 12.9 10x3/uL (4.8-10.8)
[2017-11-16 06:20] LABS: ALBUMIN 2.3 g/dL (3.4-5.0); ANION GAP 10.6 mmol/L (8-16); BILIRUBIN - TOTAL 0.78 mg/dL (0.2-1.3); CALCIUM 8.3 mg/dL (8.5-10.1); CARBON DIOXIDE 27.8 mmol/L (21.0-32.0); CREATININE - SERUM 1.2 mg/dL (0.6-1.3); POTASSIUM - SERUM 4.4 mmol/L (3.5-5.1); PROTEIN - SERUM 5.6 g/dL (6.4-8.2)
[2017-11-17] VITALS (31 sets, daily range): BP systolic 97–171; BP diastolic 57–99
[2017-11-17 06:35] LABS: HEMATOCRIT 29.3 % (42.0-54.0); HEMOGLOBIN 9.3 g/dL (13.5-17.5); MCH 29.7 pg (26.0-34.0); MCHC 31.7 g/dL (31.0-37.0); MCV 93.6 fL (80.0-100.0); MEAN PLATELET VOLUME 10.1 fL (7.4-10.4); RBC 3.13 10x6/uL (4.20-6.10); WBC 11.3 10x3/uL (4.8-10.8)
[2017-11-17 07:05] LABS: ALBUMIN 2.1 g/dL (3.4-5.0); ANION GAP 10.6 mmol/L (8-16); BILIRUBIN - TOTAL 0.8 mg/dL (0.2-1.3); CALCIUM 7.7 mg/dL (8.5-10.1); CARBON DIOXIDE 28.7 mmol/L (21.0-32.0); CREATININE - SERUM 1.1 mg/dL (0.6-1.3); POTASSIUM - SERUM 4.3 mmol/L (3.5-5.1); PROTEIN - SERUM 5.7 g/dL (6.4-8.2)
[2017-11-18] VITALS (24 sets, daily range): BP systolic 127–158; BP diastolic 66–95
[2017-11-18 06:10] LABS: HEMATOCRIT 29.6 % (42.0-54.0); HEMOGLOBIN 9.3 g/dL (13.5-17.5); MCH 29.2 pg (26.0-34.0); MCHC 31.4 g/dL (31.0-37.0); MCV 93.1 fL (80.0-100.0); MEAN PLATELET VOLUME 9.7 fL (7.4-10.4); RBC 3.18 10x6/uL (4.20-6.10); RDW 13.9 % (11.5-14.5); WBC 10.5 10x3/uL (4.8-10.8)
[2017-11-18 06:26] LABS: ALBUMIN 1.9 g/dL (3.4-5.0); ALKALINE PHOSPHATASE 66 U/L (46-116); ALT (SGPT) 185 U/L (10-68); CALC OSMOLALITY 281 mosm/kg (275-300); CALCIUM 7.6 mg/dL (8.5-10.1); CARBON DIOXIDE 24.6 mmol/L (21.0-32.0); CHLORIDE - SERUM 104 mmol/L (98-107); CREATININE - SERUM 0.9 mg/dL (0.6-1.3); GLUCOSE 111 mg/dL (74-106); PROTEIN - SERUM 5.5 g/dL (6.4-8.2); SODIUM 138 mmol/L (136-145); UREA NITROGEN 26 mg/dL (7-18); eGFR NON AFRICAN AMERICAN > 90 mL/min (90-120)
[2017-11-19] VITALS (17 sets, daily range): BP systolic 126–162; BP diastolic 73–94
[2017-11-20 00:30] VITALS: BP 161/94
[2017-11-20 04:30] VITALS: BP 163/89
[2017-11-20 04:58] LABS: BASOPHILS 0.2 % (0-2); EOSINOPHILS 0.8 % (0-7); HEMOGLOBIN 9.7 g/dL (13.5-17.5); IMMATURE GRANULOCYTES 0.6 % (0-5); LYMPHOCYTES 12.3 % (15-50); MCH 29.6 pg (26.0-34.0); MCHC 31.3 g/dL (31.0-37.0); MCV 94.5 fL (80.0-100.0); MONOCYTES 7.8 % (2-11); NEUTROPHILS 78.3 % (40-80); RBC 3.28 10x6/uL (4.20-6.10); RDW 14.1 % (11.5-14.5); WBC 11.7 10x3/uL (4.8-10.8)
[2017-11-20 05:00] LABS: CALC OSMOLALITY 275 mosm/kg (275-300); CALCIUM 8.2 mg/dL (8.5-10.1); CARBON DIOXIDE 20.5 mmol/L (21.0-32.0); CHLORIDE - SERUM 105 mmol/L (98-107); CREATININE - SERUM 0.8 mg/dL (0.6-1.3); GLUCOSE 106 mg/dL (74-106); PLATELET COUNT 261 10x3/uL (130-400); POTASSIUM - SERUM 4.6 mmol/L (3.5-5.1); SODIUM 137 mmol/L (136-145); eGFR NON AFRICAN AMERICAN > 90 mL/min (90-120)
[2017-11-20 05:04] LABS: UREA NITROGEN 19 mg/dL (7-18)
[2017-11-20 09:29] VITALS: BP 163/89
[2017-11-20 12:23] VITALS: BP 160/78
[2017-11-20 15:56] VITALS: BP 140/78
[2017-11-20 19:00] VITALS: BP 136/85
[2017-11-21] VITALS (7 sets, daily range): BP systolic 130–180; BP diastolic 75–98
[2017-11-22] VITALS (7 sets, daily range): BP systolic 99–138; BP diastolic 60–84
[2017-11-22 04:25] LABS: BASOPHILS 0.2 % (0-2); EOSINOPHILS 0.6 % (0-7); HEMATOCRIT 29.1 % (42.0-54.0); HEMOGLOBIN 8.9 g/dL (13.5-17.5); IMMATURE GRANULOCYTES 0.3 % (0-5); LYMPHOCYTES 12.2 % (15-50); MCHC 30.6 g/dL (31.0-37.0); MCV 94.8 fL (80.0-100.0); MONOCYTES 7.1 % (2-11); NEUTROPHILS 79.6 % (40-80); RBC 3.07 10x6/uL (4.20-6.10); RDW 13.7 % (11.5-14.5); WBC 9.9 10x3/uL (4.8-10.8)
[2017-11-22 04:27] LABS: PLATELET COUNT 342 10x3/uL (130-400)
[2017-11-22 04:36] LABS: CALCIUM 8.1 mg/dL (8.5-10.1)
[2017-11-22 04:38] LABS: ANION GAP 9.9 mmol/L (8-16); CARBON DIOXIDE 26.9 mmol/L (21.0-32.0); CREATININE - SERUM 1.1 mg/dL (0.6-1.3); POTASSIUM - SERUM 3.8 mmol/L (3.5-5.1)
[2017-11-23 01:41] VITALS: BP 113/55
[2017-11-23 05:16] VITALS: BP 125/86
[2017-11-23] MEDS ORDERED: LIPITOR20 MG PO (08:26)
[2017-11-23] MEDS ORDERED: CARDIZEM CD120 MG PO (08:26)
[2017-11-23] MEDS ORDERED: LISINOPRIL10 MG PO (08:27)
[2017-11-23] MEDS ORDERED: TOPROL XL50 MG PO (08:27)
[2017-11-23] MEDS ORDERED: HYDRALAZINE HCL25 MG PO (08:27)
[2017-11-23] MEDS ORDERED: ISOSORBIDE MONO30 M1 PO (08:27)
[2017-11-23] MEDS ORDERED: ASPIRIN81 MG PO (08:28)
[2017-11-23] MEDS ORDERED: SENOKOT-S TABLE1 TAB PO (08:32)
[2017-11-23] MEDS ORDERED: HYDROCODONE-APA1 TAB PO (08:41)
[2017-11-23 09:50] VITALS: BP 145/73
[2017-11-23] MEDS ORDERED: IPRAT-ALBUT 0.5-3 ML UPD (11:59)
[2017-11-23] MEDS ORDERED: NYSTATIN ORAL SU5 ML PO (11:59)
[2017-11-23] MEDS ORDERED: BENZONATATE200 MG PO (12:00)
[2017-11-23] MEDS ORDERED: BREO ELLIPTA 21 EACH IH (12:01)
[2017-11-23 12:06] VITALS: BP 136/73
[2017-11-23] MEDS ORDERED: MUCINEX DM ER1 EAC1 PO (14:31)
[2017-11-23 15:28] LABS: AFB SPECIMEN PROCESSING Concentration (())
[2017-11-24 10:20] LABS: FUNGUS STAIN Final report (())
[2017-11-29 14:20] LABS: FUNGUS STAIN RESULT 1 Hyphae observed (())
[2017-12-20 15:28] LABS: FUNGUS CULTURE RESULT 1 Candida albicans (()); FUNGUS MYCOLOGY CULTURE Final report (())
[2018-01-15 13:13] LABS: ACID FAST CULTURE Negative (()); ACID FAST SMEAR Negative (())
== END 2017-11-23 16:00 | disposition home or self-care (01) | DRG 233 ==
LOC: D.ER 20:10 → OBSVTIME 21:45 → D.M2 21:45 → D.EDHOLD 21:45 → D.M2 22:28 → D.CVICU 11-05 18:47 → D.M2 11-16 12:44 → D.CVICU 11-16 19:51 → D.M2 11-19 16:36 → D.CVICU 11-19 16:36 → D.M2 11-20 13:29 → D.SDCHOLD 11-20 13:29 → D.M2 11-20 13:35
PROVIDERS: Family Medicine; Internal Medicine Cardiovascular Disease; Internal Medicine Pulmonary Disease; Thoracic Surgery (Cardiothoracic Vascular Surgery)
PROC: B211YZZ Fluoroscopy of Multiple Coronary Arteries using Other Contrast (ICD-10-PCS; 2017-11-05)
PROC: B215YZZ Fluoroscopy of Left Heart using Other Contrast (ICD-10-PCS; 2017-11-05)
PROC: 4A023N7 Measurement of Cardiac Sampling and Pressure, Left Heart, Percutaneous Approach (ICD-10-PCS; principal; 2017-11-05 08:40)
PROC: 02100Z9 Bypass Coronary Artery, One Artery from Left Internal Mammary, Open Approach (ICD-10-PCS; 2017-11-13)
PROC: 02100AW Bypass Coronary Artery, One Artery from Aorta with Autologous Arterial Tissue, Open Approach (ICD-10-PCS; 2017-11-13)
PROC: 0210093 Bypass Coronary Artery, One Artery from Coronary Artery with Autologous Venous Tissue, Open Approach (ICD-10-PCS; 2017-11-13)
PROC: 06BP0ZZ Excision of Right Saphenous Vein, Open Approach (ICD-10-PCS; 2017-11-13)
PROC: 03BB0ZZ Excision of Right Radial Artery, Open Approach (ICD-10-PCS; 2017-11-13)
PROC: 5A1221Z Performance of Cardiac Output, Continuous (ICD-10-PCS; 2017-11-13)
PROC: B245ZZ4 Ultrasonography of Left Heart, Transesophageal (ICD-10-PCS; 2017-11-13)
PROC: 04Q00ZZ Repair Abdominal Aorta, Open Approach (ICD-10-PCS; 2017-11-13)
PROC: 0W9B3ZZ Drainage of Left Pleural Cavity, Percutaneous Approach (ICD-10-PCS; 2017-11-20)
DX: I21.4 Non-ST elevation (NSTEMI) myocardial infarction (principal); I71.02 Dissection of abdominal aorta; J95.821 Acute postprocedural respiratory failure; J44.1 Chronic obstructive pulmonary disease with (acute) exacerbation; J44.0 Chronic obstructive pulmonary disease with (acute) lower respiratory infection; J98.11 Atelectasis; J90 Pleural effusion, not elsewhere classified; D62 Acute posthemorrhagic anemia; I25.10 Atherosclerotic heart disease of native coronary artery without angina pectoris; I10 Essential (primary) hypertension; I51.7 Cardiomegaly; J20.9 Acute bronchitis, unspecified; F17.200 Nicotine dependence, unspecified, uncomplicated

== ENCOUNTER 2019-11-22 05:24 | Emergency (ER) | payer MEDICAID ==
[~2019-11-22] VITALS: Ht 188 cm; Wt 100.0 kg
[~2019-11-22 05:24] MED LIST: ASPIRIN81 MG PO; BENZONATATE200 MG PO; BREO ELLIPTA 21 EACH IH; CARDIZEM CD120 MG PO; COREG6.25 MG PO; HYDRALAZINE HCL25 MG PO; HYDROCHLOROTH12.5 M1 PO; HYDROCODONE-APA1 TAB PO; IPRAT-ALBUT 0.5-3 ML UPD; ISOSORBIDE MONO30 M1 PO; LIPITOR20 MG PO; LISINOPRIL10 MG PO; MUCINEX DM ER1 EAC1 PO; NYSTATIN ORAL SU5 ML PO; PRINIVIL20 MG PO; SENOKOT-S TABLE1 TAB PO; TOPROL XL50 MG PO
[2019-11-22 05:33] VITALS: Ht 188 cm; Wt 100.0 kg
[2019-11-22] MEDS ORDERED: ZESTRIL20 MG PO (06:05)
[2019-11-22 06:39] VITALS: BP 169/112
== END 2019-11-22 06:46 | disposition home or self-care (01) ==
LOC: D.ER 05:24
DX: R04.0 Epistaxis (principal); I10 Essential (primary) hypertension; Z72.0 Tobacco use; Z95.1 Presence of aortocoronary bypass graft

== ENCOUNTER 2020-05-06 20:19 | Observation (INO) | payer MEDICAID ==
[~2020-05-06] VITALS: Ht 188 cm; Wt 90.9 kg
[~2020-05-06 20:19] MED LIST changes: +ZESTRIL20 MG PO
[2020-05-06 20:26] VITALS: Ht 188 cm; Wt 90.9 kg
[2020-05-06 20:43] LABS: BASOPHILS 0.5 % (0-2); EOSINOPHILS 1.2 % (0-7); HEMATOCRIT 42.3 % (42.0-54.0); HEMOGLOBIN 12.7 g/dL (13.5-17.5); IMMATURE GRANULOCYTES 0.2 % (0-5); LYMPHOCYTES 16.6 % (15-50); MCH 27.5 pg (26.0-34.0); MCV 91.6 fL (80.0-100.0); MEAN PLATELET VOLUME 9.5 fL (7.4-10.4); NEUTROPHILS 75.5 % (40-80); RBC 4.62 10x6/uL (4.20-6.10); RDW 15.6 % (11.5-14.5); WBC 9.5 10x3/uL (4.8-10.8)
[2020-05-06 20:47] LABS: PLATELET COUNT 239 10x3/uL (130-400)
[2020-05-06 21:00] VITALS: BP 190/116
[2020-05-06 21:04] LABS: APTT 31.9 SECONDS (22.8-39.4); INR 1.11 (0.85-1.17); PROTIME 14.3 SECONDS (11.6-15.0)
[2020-05-06 21:05] LABS: ANION GAP 10.4 mmol/L (8-16); CALCIUM 8.7 mg/dL (8.5-10.1); CARBON DIOXIDE 30.2 mmol/L (21.0-32.0); D-DIMER-QUANTITATIVE 0.81 ug/mLFEU (0.20-0.54); POTASSIUM - SERUM 5.6 mmol/L (3.5-5.1)
[2020-05-06 21:26] LABS: ALBUMIN 3.5 g/dL (3.4-5.0); BILIRUBIN - TOTAL 1.23 mg/dL (0.2-1.3); C-REACTIVE PROTEIN 2.2 mg/dL (0.0-0.9); MAGNESIUM - SERUM 2.3 mg/dL (1.8-2.4); PROTEIN - SERUM 7.4 g/dL (6.4-8.2); THYROID STIMULATING HORMONE 1.92 uIU/mL (0.36-3.74)
[2020-05-06 21:30] LABS: TROPONIN-I 0.065 ng/mL (0.000-0.060)
[2020-05-06 22:00] VITALS: BP 191/119
[2020-05-06 22:07] LABS: BILIRUBIN NEGATIVE (NEGATIVE); KETONE NEGATIVE (NEGATIVE); NITRITE NEGATIVE (NEGATIVE); UROBILINOGEN NORMAL (NORMAL)
[2020-05-06 22:13] LABS: UDS - AMPHET POSITIVE QUAL (NEGATIVE); UDS - BARB NEGATIVE QUAL (NEGATIVE); UDS - BENZO NEGATIVE QUAL (NEGATIVE); UDS - COCAINE NEGATIVE QUAL (NEGATIVE); UDS - OPIATE NEGATIVE QUAL (NEGATIVE); UDS - PCP NEGATIVE QUAL (NEGATIVE); UDS - THC NEGATIVE QUAL (NEGATIVE)
[2020-05-07] VITALS (10 sets, daily range): BP systolic 150–183; BP diastolic 94–132
--- NOTE | 2020-05-07 02:45 | NUR ---
PATIENT HAS INCREASED ANXIETY, UNABLE TO REMAIN STILL DR BAUM INFORMED
--- NOTE | 2020-05-07 03:40 | NUR ---
INFORMED DR BAUM THAT PATIENTS EKG HAS SOME CHANGES, NOW IS IN ELIZABETH/TACHY SYNDROME.
[2020-05-07 07:37] LABS: BASOPHILS 0.5 % (0-2); EOSINOPHILS 1.2 % (0-7); HEMATOCRIT 40.1 % (42.0-54.0); HEMOGLOBIN 11.9 g/dL (13.5-17.5); IMMATURE GRANULOCYTES 0.2 % (0-5); LYMPHOCYTES 19.3 % (15-50); MCHC 29.7 g/dL (31.0-37.0); MCV 91.1 fL (80.0-100.0); MEAN PLATELET VOLUME 9.4 fL (7.4-10.4); MONOCYTES 5.4 % (2-11); NEUTROPHILS 73.4 % (40-80); PLATELET COUNT 241 10x3/uL (130-400); RDW 15.6 % (11.5-14.5); WBC 8.7 10x3/uL (4.8-10.8)
[2020-05-07 08:10] LABS: ALBUMIN 3.2 g/dL (3.4-5.0); ALKALINE PHOSPHATASE 94 U/L (30-120); ALT (SGPT) 31 U/L (10-68); BILIRUBIN - TOTAL 1.43 mg/dL (0.2-1.3); CALC OSMOLALITY 287 mosm/kg (275-300); CALCIUM 8.7 mg/dL (8.5-10.1); CARBON DIOXIDE 28.3 mmol/L (21.0-32.0); CHLORIDE - SERUM 106 mmol/L (98-107); CKMB 4.1 U/L (0.0-3.6); CREATINE KINASE 76 UL (21-232); CREATININE - SERUM 1.9 mg/dL (0.6-1.3); GLUCOSE 104 mg/dL (74-106); MAGNESIUM - SERUM 2.2 mg/dL (1.8-2.4); PROTEIN - SERUM 6.5 g/dL (6.4-8.2); SODIUM 141 mmol/L (136-145); TROPONIN-I 0.058 ng/mL (0.000-0.060); UREA NITROGEN 33 mg/dL (7-18); eGFR NON AFRICAN AMERICAN 39 mL/min (90-120)
--- NOTE | 2020-05-07 09:30 | NUR ---
REFUSED NICOTINE PATCH AT THIS TIME.
--- NOTE | 2020-05-07 11:15 | NUR ---
CALL TO DR. PARRA TO INFORM HIM THAT PT IS ATTEMPTING TO LEAVE AMA D/T FEELING TIRED OF BEING HERE AND IS READY TO GO. DR. PARRA STATES HE WILL COME TO SEE THE PT BEFORE HE LEAVES. CONVINCED PT TO STAY UNTIL DR. PARRA ARRIVES.
[2020-05-07 11:23] LABS: CKMB 4.6 U/L (0.0-3.6); CREATINE KINASE 80 UL (21-232); TROPONIN-I 0.056 ng/mL (0.000-0.060)
--- NOTE | 2020-05-08 08:09 | EC ---
PATIENT:MARTIN BENAVIDES DATE OF SERVICE: 05/06/20 SEX: M MEDICAL RECORD: [id number] DATE OF : 63 LOCATION:[place] [id number] AGE OF PATIENT: 55 ADMISSION DATE: 05/06/20 REFERRING PHYSICIAN: INTERPRETING PHYSICIAN: SALLY BARNETT MD ECHOCARDIOGRAM REPORT ECHO CHARGES 4 ECHO COMPLETE Date: 05/07/20 CLINICAL DIAGNOSIS: CHF HX OF CAD/CABG ECHOCARDIOGRAPHIC MEASUREMENTS (adult normal given) AC root (d.<3.7cm) 3.3 cm LV Septum d (<1.2 cm> 1.4 cm Valve Excursion 1.3 cm LV Septum (systole) 1.5 cm Left Atria (s.<4.0cm> 4.4 cm LVPW d(<1.2cm) 4.6 cm RV (d.<2.3cm) 4.9 cm LVPW (sytole) 1.7 cm LV diastole(<5.6CM) 7.4 cm MV E-F(>70mm/sec) cm LV systole 6.7 cm LVOT Diameter 2.2 cm MV exc.(>10mm) 1.3 cm Est.ejection fraction (50-75%) % DOPPLER: LVIT cm/sec A cm/sec E 100.0 cm/sec LA cm/sec RVSP 40 mmHg LVOT 114 cm/sec AOP1/2T m/s Asc. Ao 164 cm/sec RVOT 78 cm/sec RA cm/sec PA 121 cm/sec AV Gradient Peak 10.71mmHg AV Mean 6.17 mmHg AV Area 2.7 cm MV Gradient Peak 6.26 mmHg MV Mean 2.44 mmHg MV Area cm COMMENTS: Rn Perioperative: 2 SHEILA MCCARTHY Skin Tanner: 3 Dr. Lindsey TAPE# PACS Pericardial Effusion N DATE OF SERVICE: Adequate 2D, color-flow imaging, spectral Doppler, and M-Mode LVH is present. LV internal dimensions are dilated. LV is globally hypokinetic with reduced EF, estimated EF 20% to 25%. Aortic valve is sclerosed without stenosis by Doppler interrogation. Left atrium is likewise dilated at 4.4 cm. Mitral valve shows no prolapse. Mild MR. Right-sided chambers appear upper limits of normal to mildly dilated. Moderate TR. PA systolic pressure is estimated greater than or equal to 40 mmHg via the continuity equation. ECHOCARDIOGRAM REPORT [id number] MARTIN BENAVIDES TRANSINT:[id number] Voice Confirmation ID: [id number] DOCUMENT ID: [id number] SALLY BARNETT MD at 0809 CC: [id number] DICTATION DATE: 05/07/20 1412 PERFECT BINDER FEEDER OFFBEARER: 05/07/20 1513 DIS IN 05/07/20 [place] [id number] [place] [id number]
== END 2020-05-07 13:00 | disposition left against medical advice (07) ==
LOC: D.ER 20:19 → D.EDHOLD 21:40 → OBSVTIME 21:40 → D.EDHOLD 21:40
PROVIDERS: Family Medicine; ADMIT Family Medicine; ATTEND Family Medicine
DX: I10 Essential (primary) hypertension (principal); I25.10 Atherosclerotic heart disease of native coronary artery without angina pectoris; F17.203 Nicotine dependence unspecified, with withdrawal; Z95.1 Presence of aortocoronary bypass graft; R79.89 Other specified abnormal findings of blood chemistry; F15.20 Other stimulant dependence, uncomplicated; N17.9 Acute kidney failure, unspecified

== ENCOUNTER 2020-05-08 15:42 | Inpatient (IN) | payer MEDICAID ==
[~2020-05-08] VITALS: Ht 188 cm; Wt 90.9 kg
--- NOTE | ~2020-05-08 | CN ---
PATIENT NAME:MARTIN BENAVIDES MEDICAL RECORD: [id number] : 63 LOCATION:D. D.2122 ADMIT DATE: 05/08/20 ACCOUNT: [id number] CONSULTING PHYSICIAN: SALLY BARNETT MD REFERRING PHYSICIAN: MK RICE DO DATE OF CONSULTATION: 05/09/2020 HISTORY OF PRESENT ILLNESS: A 55-year-old gentleman with history of noncompliance as well as ongoing methamphetamine abuse, he has been out of his cardiac/cardiomyopathic medications for some time, now presented to the ER with wheezing, orthopnea, PND, symptomology is going for about a week. He is found to have elevated BNP. Chest x-ray consistent with volume overload. We are asked to see him concerning his cardiovascular status. PAST MEDICAL HISTORY: Includes; 1. History of coronary artery disease, status post bypass grafting. 2. Hypertension. 3. Hyperlipidemia. 4. Cardiomyopathy. ALLERGIES: None known. MEDICATIONS: Are supposed to include lisinopril 20 mg p.o. every day, carvedilol 6.25 every day. SOCIAL HISTORY: Smokes about a pack a day. Intermittent methamphetamine abuse as well as social drinker. Marijuana. No set exercise program. REVIEW OF SYSTEMS: The patient reports easy bruising but reports no swollen glands. The patient reports no fever, no night sweats, no significant weight gain, no significant weight loss. No significant exercise tolerance. The patient reports no dry eyes, no irritation, no vision change. Patient reports no difficulty hearing and no ear pain. Patient reports no frequent nose bleeds or nose and sinus problems. Patient reports on arm pain on exertion. No shortness of breath while lying down. No history of heart murmur. Patient reports no cough, no wheezing or coughing up blood. Patient reports no abdominal pain, no vomiting. Normal appetite. No diarrhea and not vomiting blood. No nausea and no constipation. Patient reports no incontinence. No difficulty urinating. No hematuria. No increased frequency. Patient reports no muscle aches. No weakness, no arthralgias, no back pain. No swelling of the extremities. Patient reports no abnormal mole, no jaundice, no rashes. Reports no loss of consciousness. No weakness and no numbness. No seizures, dizziness, or headaches. The patient reports no depression, no sleep disturbance, feeling safe in a relationship and no alcohol abuse. Patient reports on fatigue. Reports no runny nose or sinus pressure. No itching, no hives, and no frequent sneezing. PHYSICAL EXAMINATION: GENERAL: A middle-aged gentleman currently in no acute distress. VITAL SIGNS: Blood pressure 165/100, pulse 99. HEENT: Normocephalic, atraumatic. NECK: No bruits noted. HEART: Regular. S3 gallop is noted. A II/ systolic ejection murmur. LUNGS: Prolonged expiratory phase with few scattered crackles and wheezes. ABDOMEN: Soft, nontender. CONSULT REPORT [id number] MARTIN BENAVIDES EXTREMITIES: Pulses 2+. No edema. IMPRESSION: Volume overload, known cardiomyopathy with a recent ejection fraction of 25%. Responded to loop diuretics IV. At this point, we will place back on a beta blockade, TANESHA inhibitor as well as aldosterone inhibition. Given previous noncompliance, long-term prognosis does not appear that great. TRANSINT:[id number] Voice Confirmation ID: [id number] DOCUMENT ID: [id number] SALLY BARNETT MD CC: [id number] DICTATION DATE: 05/09/20958 CARDROOM HAND: 05/09/20 1417 ADM IN [facility] [address] [place] [address]
[2020-05-08 16:16] LABS: BASOPHILS 0.2 % (0-2); EOSINOPHILS 0.9 % (0-7); HEMATOCRIT 38.9 % (42.0-54.0); HEMOGLOBIN 11.8 g/dL (13.5-17.5); IMMATURE GRANULOCYTES 0.3 % (0-5); LYMPHOCYTES 9.6 % (15-50); MCH 27.6 pg (26.0-34.0); MCHC 30.3 g/dL (31.0-37.0); MCV 90.9 fL (80.0-100.0); MEAN PLATELET VOLUME 9.4 fL (7.4-10.4); MONOCYTES 4.9 % (2-11); NEUTROPHILS 84.1 % (40-80); PLATELET COUNT 227 10x3/uL (130-400); RBC 4.28 10x6/uL (4.20-6.10); RDW 15.7 % (11.5-14.5)
[2020-05-08 16:24] LABS: CALC OSMOLALITY 291 mosm/kg (275-300); CALCIUM 8.8 mg/dL (8.5-10.1); CHLORIDE - SERUM 106 mmol/L (98-107); CREATININE - SERUM 1.7 mg/dL (0.6-1.3); GLUCOSE 128 mg/dL (74-106); INR 1.05 (0.85-1.17); POTASSIUM - SERUM 4.6 mmol/L (3.5-5.1); PROTIME 13.6 SECONDS (11.6-15.0); SODIUM 141 mmol/L (136-145); UREA NITROGEN 38 mg/dL (7-18); eGFR NON AFRICAN AMERICAN 44 mL/min (90-120)
[2020-05-08 16:45] LABS: ALBUMIN 3.2 g/dL (3.4-5.0); ALKALINE PHOSPHATASE 109 U/L (30-120); ALT (SGPT) 29 U/L (10-68); BILIRUBIN - TOTAL 0.93 mg/dL (0.2-1.3); CREATINE KINASE 87 UL (21-232); PRO BNP 7909 pg/mL (0-125); PROTEIN - SERUM 6.2 g/dL (6.4-8.2)
[2020-05-08 16:46] LABS: TROPONIN-I 0.066 ng/mL (0.000-0.060)
[2020-05-08 17:18] VITALS: BP 170/110
[2020-05-08 19:59] VITALS: BP 166/112
--- NOTE | 2020-05-08 20:30 | NUR ---
REPORT RECEIVED FROM ER. ROOM READY.
--- NOTE | 2020-05-08 20:42 | NUR ---
REPORT RECIEVED FROM ER AT 2100. ROOM READY AND AVAILABLE.
--- NOTE | 2020-05-08 22:49 | NUR ---
PT ARRIVED TO UNIT FROM ER. ALERT/ORIENTED AND AMBULATORY. ADMISSION ASSESSMENT AND HISTORY INITIATED. TELEMETRY STARTED, CURRENTLY ST 104. PLACED ON BIPAP PER RESPIRATORY. PT IMMEDIATELY TRYING TO GO TO SLEEP AND RELUCTANT TO ANSWER QUESTIONS. CALL LIGHT IN REACH. PLAN OF CARE INITIATED.
[2020-05-08 23:16] VITALS: BP 175/110; Ht 188 cm; Wt 90.9 kg
[2020-05-09 00:42] LABS: CKMB 2.4 U/L (0.0-3.6); CREATINE KINASE 45 UL (21-232); TROPONIN-I 0.053 ng/mL (0.000-0.060)
[2020-05-09 04:00] VITALS: BP 149/99
[2020-05-09 06:47] LABS: BASOPHILS 0.3 % (0-2); EOSINOPHILS 1.3 % (0-7); HEMATOCRIT 37.1 % (42.0-54.0); HEMOGLOBIN 10.9 g/dL (13.5-17.5); IMMATURE GRANULOCYTES 0.1 % (0-5); LYMPHOCYTES 15.4 % (15-50); MCHC 29.4 g/dL (31.0-37.0); MCV 91.8 fL (80.0-100.0); MEAN PLATELET VOLUME 9.3 fL (7.4-10.4); MONOCYTES 7.5 % (2-11); NEUTROPHILS 75.4 % (40-80); PLATELET COUNT 209 10x3/uL (130-400); RBC 4.04 10x6/uL (4.20-6.10); RDW 15.6 % (11.5-14.5); WBC 6.9 10x3/uL (4.8-10.8)
[2020-05-09 07:29] LABS: CALC OSMOLALITY 295 mosm/kg (275-300); CALCIUM 8.5 mg/dL (8.5-10.1); CHLORIDE - SERUM 108 mmol/L (98-107); CKMB 2.6 U/L (0.0-3.6); CREATINE KINASE 39 UL (21-232); CREATININE - SERUM 1.9 mg/dL (0.6-1.3); GLUCOSE 106 mg/dL (74-106); MAGNESIUM - SERUM 2.3 mg/dL (1.8-2.4); PHOSPHOROUS 5.1 mg/dL (2.5-4.9); POTASSIUM - SERUM 4.1 mmol/L (3.5-5.1); SODIUM 144 mmol/L (136-145); TROPONIN-I 0.051 ng/mL (0.000-0.060); UREA NITROGEN 37 mg/dL (7-18); eGFR NON AFRICAN AMERICAN 39 mL/min (90-120)
[2020-05-09 09:02] VITALS: BP 165/100
[2020-05-09 10:04] LABS: CKMB 3.2 U/L (0.0-3.6); CREATINE KINASE 209 UL (21-232); TROPONIN-I 0.043 ng/mL (0.000-0.060)
--- NOTE | 2020-05-09 12:42 | NUR ---
INFORMED PT THAT WE NEED URINE AND RESP CULTURES. PROVIDED PT WITH COLLECTION CONTAINERS. PT RESTING COMFORTABLY IN BED, DENIES ANY NEEDS. CALL LIGHT IN REACH, WILL CONTINUE PLAN OF CARE.
[2020-05-09 14:53] VITALS: BP 129/86
[2020-05-09 15:44] LABS: BILIRUBIN NEGATIVE (NEGATIVE); KETONE NEGATIVE (NEGATIVE); NITRITE NEGATIVE (NEGATIVE); UROBILINOGEN NORMAL (NORMAL)
[2020-05-09 18:06] VITALS: BP 161/98
[2020-05-09 20:00] VITALS: BP 140/85
[2020-05-10] VITALS: BP 132/78
[2020-05-10 04:00] VITALS: BP 150/102
[2020-05-10 06:01] LABS: BASOPHILS 0.4 % (0-2); HEMOGLOBIN 11.1 g/dL (13.5-17.5); IMMATURE GRANULOCYTES 0.1 % (0-5); LYMPHOCYTES 16.9 % (15-50); MCH 27.1 pg (26.0-34.0); MCV 90.2 fL (80.0-100.0); MEAN PLATELET VOLUME 9.2 fL (7.4-10.4); MONOCYTES 6.1 % (2-11); NEUTROPHILS 74.5 % (40-80); PLATELET COUNT 215 10x3/uL (130-400); RDW 15.2 % (11.5-14.5); WBC 7.7 10x3/uL (4.8-10.8)
[2020-05-10 06:35] LABS: ANION GAP 9.6 mmol/L (8-16); CALCIUM 8.3 mg/dL (8.5-10.1); CARBON DIOXIDE 30.8 mmol/L (21.0-32.0); CREATININE - SERUM 2.2 mg/dL (0.6-1.3); MAGNESIUM - SERUM 2.3 mg/dL (1.8-2.4); PHOSPHOROUS 5.4 mg/dL (2.5-4.9); POTASSIUM - SERUM 3.4 mmol/L (3.5-5.1)
[2020-05-10 08:00] VITALS: BP 175/97
[2020-05-10] MEDS ORDERED: COZAAR25 MG PO (10:39)
[2020-05-10] MEDS ORDERED: COREG6.25 MG PO (10:40)
[2020-05-10] MEDS ORDERED: LASIX20 MG PO (10:40)
[2020-05-10] MEDS ORDERED: ALDACTONE25 MG PO (10:43)
--- NOTE | 2020-05-10 10:47 | NUR ---
PT BEING DISCHARGED TODAY. URINAL EMPTIED. ROOM AIR OXYGEN. NO COMPLAINTS.
--- NOTE | 2020-05-10 12:04 | MORECARE ---
CASE MANAGEMENT DISCHARGE SUMMARY PATIENT: MARTIN BENAVIDES UNIT: [id number] ADM DATE: 05/08/20 AGE: 55 : 63 SEX: M ROOM/BED: D.2122 AUTHOR: OPAL SANTIAGO PHYSICIAN: REFERRING PHYSICIAN: MK RICE DO DATE OF SERVICE: 05/10/20 Discharge Plan Patient Name: MARTIN BENAVIDES [facility] [facility] 1965 Planned Disposition: Home Anticipated Discharge Date: Discharge Date: Expected LOS: Initial Reviewer: [email or web address] Initial Review Date: 05/08/2020 Generated: 05/10/20 1:04 pm Patient Name: MARTIN BENAVIDES Page [phone] at 1204 All edits/amendments must be made on the electronic document DICTATION DATE: 05/10/20 1204 AGRICULTURAL LENDER: THEE 05/10/20 1204 RPT#: [id number] DC DATE: STATUS: ADM IN [facility] [address] [place] [address] END OF REPORT
--- NOTE | 2020-05-10 12:12 | MORECARE ---
CASE MANAGEMENT DISCHARGE SUMMARY PATIENT: MARTIN BENAVIDES UNIT: [id number] ADM DATE: 05/08/20 AGE: 55 : 63 SEX: M ROOM/BED: D.8351 AUTHOR: OPAL SANTIAGO PHYSICIAN: REFERRING PHYSICIAN: MK RICE DO DATE OF SERVICE: 05/10/20 Discharge Plan Patient Name: MARTIN BENAVIDES Facility: [facility]:[place] : 1965 Planned Disposition: Home Anticipated Discharge Date: Discharge Date: Expected LOS: Initial Reviewer: [email or web address] Initial Review Date: 05/08/2020 Generated: 05/10/20 1:11 pm Comments DCP- Discharge Planning Updated by [email or web address]: Genoveva Islas on 05/10/20 11:[address] Patient Name: MARTIN BENAVIDES Admission Status: ER Accout number: [id number] Admission Date: 05-08-2020 : 1965 Admission Diagnosis: Attending: MK RICE Current LOS: 2 Anticipated DC Date: Planned Disposition: Home [place] Insurance: [place] [employer] [place] Discharge Planning Comments: CM met with patient to complete initial dc planning assessment. CM educated patient on the CM role and verbal consent given by patient to complete assessment. CM verified patient's address, phone number, and emergency contact phone numbers. Patient lives home with someone and is independent. At discharge patient plans to return home and feels this is a safe discharge. CM discussed availability of home health, rehab services, and medical equipment. Patient denied known discharge needs at this time, declination signed. Transportation provider at discharge will be Nilo Prado. CM will continue to follow and will assist as needed with dc plans/needs. Criminal Court Judge: Genoveva Islas DCPIA - Discharge Planning Initial Assessment Updated by [email or web address]: Genoveva Islas on 05/10/20 12:08 pm * Is the patient Alert and Oriented? Yes * How many steps to enter\exit or inside your home? 0/0 * PCP GILBERTO * Pharmacy [facility] [place] * Preadmission Environment Home Alone * ADLs Independent * Equipment Cane * List name and contact numbers for known caregivers / representatives who currently or will assist patient after discharge: N/A * Verbal permission to speak to the caregivers and representatives has been obtained from the patient. N/A * Community resources currently utilized None * Additional services required to return to the preadmission environment? No * Can the patient safely return to the preadmission environment? Yes * Has this patient been hospitalized within the prior 30 days at any hospital? No Coverage Notice Reviewer: [email or web address] Bobby Islas Notice Issued Date-Time: 05/10/2020 11:09 Notice Type: Patient Choice Letter Notice Delivered To: Patient Relationship to Patient: Casting And Pasting Supervisor Name: Delivery Method: HAND - Hand Delivered Michell Days: Prior Verbal Notification: Recipient Understood Notice: Yes Recipient Signature: Yes Med Rec Note Co-signed by Attending: Coverage Notice Comment: declinied hh Last DP export: 05/10/20 11:04 a Patient Name: MARTIN BENAVIDES Page [phone] at 1212 All edits/amendments must be made on the electronic document DICTATION DATE: 05/10/20 1211 FORWARD AIR CONTROLLER/AIR OFFICER: THEE 05/10/20 1211 RPT#: [id number] DC DATE: STATUS: ADM IN [facility] [address] [place] [address] END OF REPORT
--- NOTE | 2020-05-10 13:37 | NUR ---
pt's discharge in structions reviewed and signed. iv removed, telemetry removed. pt wants to walk out to er. walked with, no complications, ride waiting.
--- NOTE | 2020-05-11 08:09 | MORECARE ---
CASE MANAGEMENT DISCHARGE SUMMARY PATIENT: MARTIN BENAVIDES UNIT: [id number] ADM DATE: 05/08/20 AGE: 55 : 63 SEX: M ROOM/BED: D.7459 AUTHOR: PAMELADOC PHYSICIAN: REFERRING PHYSICIAN: MK RICE DO DATE OF SERVICE: 05/11/20 Discharge Plan Patient Name: MARTIN BENAVIDES Facility: [facility]:[place] : 1965 Planned Disposition: Home Anticipated Discharge Date: Discharge Date: 05/10/2020 Expected LOS: Initial Reviewer: [email or web address] Initial Review Date: 05/08/2020 Generated: 05/11/20 9:08 am DCP- Discharge Planning Updated by [email or web address]: Genoveva Islas on 05/10/20 11:[address] Patient Name: MARTIN BENAVIDES Admission Status: ER Accout number: [id number] Admission Date: 05-08-2020 : 1965 Admission Diagnosis: Attending: MK RICE Current LOS: 2 Anticipated DC Date: Planned Disposition: Home Primary Insurance: [place] [employer] [place] Discharge Planning Comments: CM met with patient to complete initial dc planning assessment. CM educated patient on the CM role and verbal consent given by patient to complete assessment. CM verified patient's address, phone number, and emergency contact phone numbers. Patient lives home with someone and is independent. At discharge patient plans to return home and feels this is a safe discharge. CM discussed availability of home health, rehab services, and medical equipment. Patient denied known discharge needs at this time, declination signed. Transportation provider at discharge will be Nilo Prado. CM will continue to follow and will assist as needed with dc plans/needs. Support Team Assoc: Genoveva Islas DCPIA - Discharge Planning Initial Assessment Updated by [email or web address]: Genoveva Islas on 05/10/20 12:08 pm * Is the patient Alert and Oriented? Yes * How many steps to enter\exit or inside your home? 0/0 * PCP GILBERTO * Pharmacy [facility] [place] * Preadmission Environment Home Alone * ADLs Independent * Equipment Cane * List name and contact numbers for known caregivers / representatives who currently or will assist patient after discharge: N/A * Verbal permission to speak to the caregivers and representatives has been obtained from the patient. N/A * Community resources currently utilized None * Additional services required to return to the preadmission environment? No * Can the patient safely return to the preadmission environment? Yes * Has this patient been hospitalized within the prior 30 days at any hospital? No Coverage Notice Reviewer: [email or web address] Bobby Islas Notice Issued Date-Time: 05/10/2020 11:09 Notice Type: Patient Choice Letter Notice Delivered To: Patient Relationship to Patient: Driver Sales Name: Delivery Method: HAND - Hand Delivered Michell Days: Prior Verbal Notification: Recipient Understood Notice: Yes Recipient Signature: Yes Med Rec Note Co-signed by Attending: Coverage Notice Comment: declinied hh Last DP export: 05/10/20 11:12 a Patient Name: MARTIN BENAVIDES Page [phone] at 0809 All edits/amendments must be made on the electronic document DICTATION DATE: 05/11/20807 ARMATURE REWINDER: THEE 05/11/20807 RPT#: [id number] DC DATE:05/10/20 STATUS: DIS IN [facility] [address] [place] [address] END OF REPORT
== END 2020-05-10 13:38 | disposition home or self-care (01) | DRG 292 ==
LOC: D.ER 15:42 → D.M2 18:53
PROVIDERS: Emergency Medicine; ADMIT Family Medicine; ATTEND Family Medicine
DX: I11.0 Hypertensive heart disease with heart failure (principal); N17.9 Acute kidney failure, unspecified; F15.20 Other stimulant dependence, uncomplicated; F17.203 Nicotine dependence unspecified, with withdrawal; I50.23 Acute on chronic systolic (congestive) heart failure; I25.10 Atherosclerotic heart disease of native coronary artery without angina pectoris; E78.5 Hyperlipidemia, unspecified; I42.9 Cardiomyopathy, unspecified; R79.89 Other specified abnormal findings of blood chemistry